=== PATIENT | male | born 1990 | race African-American/Black ===

== ENCOUNTER 2017-11-26 12:59 | Emergency (ER) | payer BC, MEDICAID ==
[~2017-11-26] VITALS: Ht 177.8 cm; Wt 78.0 kg
[2017-11-26] MEDS ORDERED: OLANZAPINE 10 MG/VIAL IM ONE (13:45)
[2017-11-26 14:16] LABS: BASOPHILS % 0.6 % (0.0-2.0); EOSINOPHILS % 0.4 % (0.0-5.0); HEMATOCRIT. 43.9 % (42.0-52.0); HEMOGLOBIN. 15.4 g/dL (14.0-18.0); LYMPHOCYTES % 16.5 % (20.0-50.0); MEAN CORPUSCULAR HEMOGLOBIN 28.5 pg (28.0-32.0); MEAN CORPUSCULAR VOLUME 81.4 fL (80.0-94.0); MEAN PLATELET VOLUME 8.1 fl (7.4-10.4); MONOCYTES % 8.5 % (2.0-8.0); PLATELET 231 x1000/uL (130-400); RED CELL DISTRIBUTION WIDTH 14.1 % (11.6-14.6)
[2017-11-26 14:23] LABS: CHLORIDE 104 mEq/L (98-107)
[2017-11-26 14:31] LABS: ETHANOL BLOOD < 10 mg/dL
[2017-11-26 15:16] LABS: CLARITY URINE CLEAR (CLEAR); COLOR URINE YELLOW (YELLOW); KETONES URINE TRACE (NEGATIVE); LEUKOCYTE ESTERASE URINE NEGATIVE (NEGATIVE); NITRITE URINE NEGATIVE (NEGATIVE); OCCULT BLOOD URINE NEGATIVE (NEGATIVE); PROTEIN URINE NEGATIVE (NEGATIVE); SPECIFIC GRAVITY URINE 1.016 (1.005-1.030)
[2017-11-26 15:57] LABS: *AMPHETAMINES SCREEN URINE NEGATIVE (NEGATIVE)
[2017-11-26 15:58] LABS: *BARBITURATES SCREEN URINE NEGATIVE (NEGATIVE); *BENZODIAZEPINES SCREEN URINE NEGATIVE (NEGATIVE); *COCAINE SCREEN URINE NEGATIVE (NEGATIVE); METHADONE URINE SCREEN NEGATIVE (NEGATIVE); OPIATES URINE SCREEN NEGATIVE (NEGATIVE); PHENCYCLIDINE URINE SCREEN NEGATIVE (NEGATIVE)
[2017-11-26 15:59] LABS: CANNABINOID URINE SCREEN PRESUMTIVE POSITIVE (NEGATIVE)
[2017-11-26] MEDS ORDERED: LORAZEPAM 2MG/ML CPJ IV ONE (18:45)
[2017-11-26] MEDS ORDERED: LORAZEPAM 2MG/ML CPJ IM ONE (20:30)
[2017-11-26 21:35] VITALS: BP 108/73
== END 2017-11-26 21:35 | disposition home or self-care (01) ==
LOC: ER 12:59
DX: F91.8 Other conduct disorders (principal); F12.10 Cannabis abuse, uncomplicated; Z78.1 Physical restraint status
CPT/HCPCS: 36415; 80053; 80305; 81003; 85025; 96372; 99284; G0482; J2060; J3490; Z7610

== ENCOUNTER 2022-11-03 13:15 | Emergency (ER) | payer MEDICAID ==
[~2022-11-03] VITALS: Ht 177.8 cm; Wt 81.0 kg
[2022-11-03 13:18] VITALS: O2SAT 99
[2022-11-03] MEDS ORDERED: CIPHCO EACH EAR (15:16)
[2022-11-03 15:49] VITALS: BP 146/86; PULSE 97; RESP 18; TEMP 98.3
== END 2022-11-03 16:15 | disposition home or self-care (01) ==
LOC: ER 13:15
DX: H60.92 Unspecified otitis externa, left ear (principal)
CPT/HCPCS: 99283